=== PATIENT | female | born 1995 | race Caucasian/White ===

== ENCOUNTER 2024-03-05 22:55 | Emergency (ER) | payer OTHER ==
[2024-03-06] MEDS ORDERED: HYDROCODONE/APAP 7.5/325 MG TAB ONE (00:04)
[2024-03-06] MEDS ORDERED: LIDOCAINE HCL JELLY 2% 6 ML SYRINGE TOP ONE (00:05)
--- NOTE | 2024-03-06 00:41 | ER ---
Nurse's Notes [facility] Name: Fatoumata Crowe Age: 28 yrs Sex: Female : 1995 Arrival Date: 03/05/2024 Time: 22:55 Bed 18 Private MD: Diagnosis: Cutaneous abscess of face Presentation: 03/05 23:13 Chief complaint: Patient states: 4 days ago it looked like I was getting a little tm6 pimple on my forehead, but it has grown and is swollen. I am worried it is an abscess, because I've had one on my face before. Coronavirus screen: Client denies travel out of the [place] in the last 14 days. Ebola Screen: Patient negative for fever greater than or equal to 101.5 degrees Fahrenheit, and additional compatible Ebola Virus Disease symptoms Patient denies exposure to infectious person. Patient denies travel to an Ebola-affected area in the 21 days before illness onset. No symptoms or risks identified at this time. Initial Sepsis Screen: Does the patient meet any 2 criteria? No. Patient's initial sepsis screen is negative. Does the patient have a suspected source of infection? No. Patient's initial sepsis screen is negative. Risk Assessment: Do you want to hurt yourself or someone else? Patient reports no desire to harm self or others. Onset of symptoms was March 01, 2024. 23:13 Method Of Arrival: Ambulatory tm6 23:13 Acuity: RONALD 4 tm6 Triage Assessment: 23:13 General: Appears in no apparent distress. Behavior is calm, cooperative. Pain: tm6 Complains of pain in forehead Pain currently is 10 out of 10 on a pain scale. EENT: No signs and/or symptoms were reported regarding the EENT system. Neuro: Level of Consciousness is awake, alert, obeys commands, Oriented to person, place, time, situation. Cardiovascular: Patient's skin is warm and dry. Respiratory: Airway is patent Respiratory effort is even, unlabored, Respiratory pattern is regular, symmetrical. GI: No signs and/or symptoms were reported involving the gastrointestinal system. Abdomen is flat, non-distended. : No signs and/or symptoms were reported regarding the genitourinary system. Derm: Reports swelling, possible abscess on forehead. Musculoskeletal: No signs and/or symptoms reported regarding the musculoskeletal system. Historical: - Allergies: 23:13 No Known Allergies; tm6 - PMHx: 23:13 None; tm6 - PSHx: 23:13 None; tm6 - Immunization history:: Client reports having NOT received the Covid vaccine. - Infectious Disease History:: MRSA (w/in 1 year), . - Social history:: Smoking status: Reported history of juuling and/or vaping. Patient/guardian denies using alcohol. Screenin/12 00:10 [facility] ED Fall Risk Assessment (Adult) History of falling in the last 3 months, jb4 including since admission No falls in past 3 months (0 pts) Confusion or Disorientation No (0 pts) Intoxicated or Sedated No (0 pts) Impaired Gait No (0 pts) Mobility Assist Device Used No (0 pt) Altered Elimination No (0 pt) Score/Fall Risk Level 0 - 2 = Low Risk Oriented to surroundings, Maintained a safe environment. Abuse screen: Denies threats or abuse. Nutritional screening: No deficits noted. Tuberculosis screening: No symptoms or risk factors identified. Assessment: 00:10 General: Appears in no apparent distress. comfortable, Behavior is calm, cooperative, jb4 appropriate for age. Pain: Complains of pain in forehead Pain does not radiate. Pain currently is 10 out of 10 on a pain scale. Neuro: Level of Consciousness is awake, alert, obeys commands, Oriented to person, place, time, situation. Cardiovascular: Patient's skin is warm and dry. Respiratory: Airway is patent Respiratory effort is even, unlabored, Respiratory pattern is regular, symmetrical. GI: No signs and/or symptoms were reported involving the gastrointestinal system. : No signs and/or symptoms were reported regarding the genitourinary system. EENT: No signs and/or symptoms were reported regarding the EENT system. Derm: Skin is intact, Skin is pink, warm \T\ dry. Musculoskeletal: Circulation, motion, and sensation intact. Range of motion: intact in all extremities. Vital Signs: 03/05 23:10 BP 123 / 67; Pulse 89; Resp 17; Temp 98.7(O); Pulse Ox 95% on R/A; MAP 83 mmHg; Weight tm6 54.43 kg; Height 5 ft. 2 in. ; Pain 03/04; 23:10 Body Mass Index 21.95 (54.43 kg, 157.48 cm) tm6 23:10 Pain Scale: Adult tm6 ED Course: 22:57 Patient arrived in ED. jj6 23:02 [facility] sb4 23:02 Andres Duke MD is Attending Physician. sb4 23:13 Arm band placed on right wrist. tm6 23:16 Triage completed. tm6 10 00:10 Patient has correct armband on for positive identification. Bed in low position. Call jb4 light in reach. Side rails up X 1. Provided Education on: plan of care. 00:10 No provider procedures requiring assistance completed. Patient did not have IV access jb4 during this emergency room visit. Administered Medications: 00:09 Drug: Lidocaine Mucous Membrane Gel 2 % 1 application Mucous Membrane once; onto jb4 abscess Route: Mucous Membrane; 00:10 Drug: Hydrocodone-Acetaminophen PO (7.5 mg-325 mg) 1 tabs PO once Route: PO; jb4 00:53 Follow up: Response: No adverse reaction; Marked relief of symptoms jb4 00:53 Drug: Trimethoprim-Sulfamethoxazole PO (160 mg-800 mg (DS) 1 tablet PO once Route: PO; jb4 00:54 Follow up: Response: Medication administered at discharge. jb4 Medication: 00:10 VIS not applicable for this client. jb4 Outcome: 00:40 Discharge ordered by . sb4 00:54 Discharged to home ambulatory, jb4 00:54 Condition: stable 00:54 Discharge instructions given to patient, Instructed on discharge instructions, follow up and referral plans. medication usage, Demonstrated understanding of instructions, follow-up care, medications, Prescriptions given X 1, 00:55 Patient left the ED. jb4 Signatures: Tristan Sarah, RN RN jb4 Darcie Taylor jj6 Shanti Crow PA-C PA-C sb4 Eduardo Tavarez RN RN 6
--- NOTE | 2024-03-06 00:41 | EDPHYS ---
Physician Documentation [facility] Name: Fatoumata Crowe Age: 28 yrs Sex: Female : 1995 Arrival Date: 03/05/2024 Time: 22:55 Bed 18 Private MD: ED Physician Andres Duke HPI: 03/06 02:05 This 28 yrs old Female presents to ER via Ambulatory with complaints of Abscess, Facial sb4 Swelling, Eye Swelling. 02:05 The patient presents with an abscess of the forehead. Description: The affected area is sb4 small, raised, swollen, tense, warm. Onset: The symptoms/episode began/occurred yesterday. Possible cause(s): pimple. Associated signs and symptoms: Pertinent negatives: discharge, drainage, erythema, fever. The patient has experienced a previous episode. The patient has not recently seen a physician. Historical: - Allergies: 03/05 23:13 No Known Allergies; tm6 - PMHx: 23:13 None; tm6 - PSHx: 23:13 None; tm6 - Immunization history:: Client reports having NOT received the Covid vaccine. - Infectious Disease History:: MRSA (w/in 1 year), . - Social history:: Smoking status: Reported history of juuling and/or vaping. Patient/guardian denies using alcohol. ROS: 03/06 02:05 Constitutional: Negative for fever, chills, and weight loss, sb4 Skin: Positive for abscess, of the forehead, All other systems are negative, Exam: 02:05 Constitutional: This is a well developed, well nourished patient who is awake, alert, sb4 and in no acute distress. Head/Face: Normocephalic, atraumatic. Eyes: Extra-ocular motions intact. Periorbital areas with no swelling, redness, or edema. ENT: Mucous membranes moist. 02:05 Skin: abscess, that is small, approximately 2 cm(s), of the forehead, with induration, Vital Signs: 03/05 23:10 BP 123 / 67; Pulse 89; Resp 17; Temp 98.7(O); Pulse Ox 95% on R/A; MAP 83 mmHg; Weight tm6 54.43 kg; Height 5 ft. 2 in. ; Pain 10/10; 23:10 Body Mass Index 21.95 (54.43 kg, 157.48 cm) tm6 23:10 Pain Scale: Adult tm6 Procedures: 03/06 02:06 I \T\ D: Incision and drainage was performed for an abscess of the left forehead Prepped sb4 with Betadine, Anesthetized with lidocaine gel. Incised with 18 gauge needle. Drained small amount purulent fluid. Dressing: non-Adherent dressing, the patient tolerated the procedure well. MDM: 03/05 23:22 Patient medically screened. sb4 03/06 02:06 Data reviewed: vital signs, nurses notes, and as a result, I will discharge patient. sb4 Counseling: I had a detailed discussion with the patient and/or guardian regarding the historical points, exam findings, and any diagnostic results supporting the discharge/admit diagnosis, to return to the emergency department if symptoms worsen or persist or if there are any questions or concerns that arise at home. 03/05 23:43 Order name: Wound Culture sb4 Administered Medications: 00:09 Drug: Lidocaine Mucous Membrane Gel 2 % 1 application Mucous Membrane once; onto jb4 abscess Route: Mucous Membrane; 00:10 Drug: Hydrocodone-Acetaminophen PO (7.5 mg-325 mg) 1 tabs PO once Route: PO; jb4 00:53 Follow up: Response: No adverse reaction; Marked relief of symptoms jb4 00:53 Drug: Trimethoprim-Sulfamethoxazole PO (160 mg-800 mg (DS) 1 tablet PO once Route: PO; jb4 00:54 Follow up: Response: Medication administered at discharge. jb4 Disposition: 05:53 Co-signature as Attending Physician, Andres Duke MD I agree with the assessment sp4 and plan of care. I reviewed the patient's care provided by the Advanced Practice Provider and agree with the diagnosis and treatment plan. Chart complete. Disposition Summary: 03/06/24 00:40 Discharge Ordered Notes: Location: Home sb4 Problem: new sb4 Symptoms: have improved sb4 Condition: Stable sb4 Diagnosis - Cutaneous abscess of face sb4 Followup: sb4 - With: Emergency Department - When: As needed - Reason: Fever > 102 F, Worsening of condition Discharge Instructions: - Discharge Summary Sheet sb4 - Skin Abscess, [id number] sb4 - Incision and Drainage, Care After sb4 Forms: - Antibiotic Education sb4 - Patient Portal Instructions sb4 - Leadership Thank You Letter sb4 Prescriptions: - Bactrim DS 800-160 mg Oral Tablet - take 1 tablet ORAL route every 12 hours for 10 days; 20 tablet; Refills: 0, sb4 Product Selection Permitted Signatures: Dispatcher [employer] Tristan Harrington, RN RN jb4 Shanti Crow PARaissa PARaissa sb4 Andres Duke MD MD sp4 Eduardo Tavarez RN RN tm6
[2024-03-06] MEDS ORDERED: SMZ./TMP. 800/160 MG TABLET ONE (00:46)
[2024-03-06 04:53] VITALS: BP 123/67; TEMP 98.7; O2SAT 95
== END 2024-03-06 00:55 | disposition home or self-care (01) ==
LOC: ER 22:55
PROC: 0H91XZZ Drainage of Face Skin, External Approach (ICD-10-PCS; principal; 2024-03-06)
DX: L02.811 Cutaneous abscess of head [any part, except face] (principal)
CPT/HCPCS: 87070; 87077; 87186; 87205; 99283